=== PATIENT | male | born 1990 | race Two or more races ===

== ENCOUNTER 2018-09-26 09:57 | Day surgery (SDC) | payer SELFPAY ==
[2018-09-26] VITALS (12 sets, daily range): BP systolic 157–177; BP diastolic 90–105
[~2018-09-26] VITALS: Ht 172.7 cm; Wt 85.7 kg
--- NOTE | 2018-09-26 10:10 | NUR ---
ED Nurse Note: Pt brought in to ER by friend after having laceration on Lt lower arm laceration from triming tree with electric saw at work. the laceration is deep and tendon and muscles are visible. the laceration measured 2cm x 7cm and bleeding. pt aao x4 and ambulatory. graimacing due to severe pain but calm and cooperative.
[2018-09-26] MEDS ORDERED: Tetanus/Diptheria/Pertussis IM ONE (10:15)
--- NOTE | 2018-09-26 10:26 | NUR ---
ED Nurse Note: pt is on booky, pt will not be changed due to movement cause more bleeding from the site. irrigation done with 50 cc of NS. pt has sensation on Lt 5 fingers and able to move all of them. capillary refill < 3 seconds on both hands.
--- NOTE | 2018-09-26 10:30 | NUR ---
ED Nurse Note: SARAHD contacted plastic surgeon and the surgeon is on the way.
--- NOTE | 2018-09-26 11:20 | NUR ---
ED Nurse Note: Plastic surgeon at bedside for procedure. family at bedside and verbalized understanding.
[2018-09-26] MEDS ORDERED: Lidocaine 1% Plain 30 ml INJ ONE ×4 (11:25→16:01)
[2018-09-26 11:29] LABS: BASOPHILS % (AUTO) 0.8 % (0.0-2.0); EOSINOPHILS % (AUTO) 0.6 % (0.0-3.0); HEMATOCRIT 43.6 % (42.0-52.0); LYMPHOCYTES % (AUTO) 18.5 % (20.0-45.0); MEAN CORPUSCULAR VOLUME 86 FL (80-99); MONOCYTES % (AUTO) 8.5 % (1.0-10.0); NEUTROPHILS % (AUTO) 71.7 % (45.0-75.0); PLATELET COUNT 201 K/UL (150-450); RED BLOOD COUNT 5.08 M/UL (4.70-6.10); RED CELL DISTRIBUTION WIDTH 10.9 % (11.6-14.8); WHITE BLOOD COUNT 6.9 K/UL (4.8-10.8)
[2018-09-26] MEDS ORDERED: Morphine Sulfate 4mg/ml Inj (IV USE ONLY) IVP ONE (11:30)
[2018-09-26] MEDS ORDERED: Ketorolac 30mg Inj IV ONE (11:30)
[2018-09-26] MEDS ORDERED: ceFAZolin 1gm/50ml Premix 50 ML IV ONE (11:30)
[2018-09-26 11:38] LABS: ANION GAP 6 mmol/L (5-15); BLOOD UREA NITROGEN 12 mg/dL (7-18); CALCIUM 9.3 MG/DL (8.5-10.1); CARBON DIOXIDE 29 MMOL/L (21-32); CHLORIDE 100 MMOL/L (98-107); POTASSIUM 3.9 MMOL/L (3.5-5.1); SODIUM 135 MMOL/L (136-145)
[2018-09-26 11:39] LABS: INR 1.1 (0.9-1.1)
[2018-09-26 11:44] LABS: ALANINE AMINOTRANSFERASE 67 U/L (12-78); ALBUMIN 4.3 G/DL (3.4-5.0); ALBUMIN/GLOBULIN RATIO 1.2 (1.0-2.7); ALKALINE PHOSPHATASE 82 U/L (46-116); ASPARTATE AMINO TRANSFERASE 33 U/L (15-37); BILIRUBIN,TOTAL 0.7 MG/DL (0.2-1.0)
--- NOTE | 2018-09-26 11:47 | NUR ---
ED Nurse Note: plastic surgeon irrigated and applied dressing. he is talking to ERMD about having procedure in OR not in bedside.
--- NOTE | 2018-09-26 12:07 | NUR ---
ED Nurse Note: Plastic surgeon spoke pt, family, ERMD that he will transfer pt to OR. they verbalized understanding. procedure consent signed.
--- NOTE | 2018-09-26 12:43 | Emergency Room Report ---
History of Present Illness General Chief Complaint: Laceration Source: Patient Present Illness HPI 28-year-old male presents ED for evaluation. Patient walked in with laceration to forearm. States that he cut his wrist with a circular saw at work today. Denies any other injuries. Tetanus is unknown. Pain is an 8 out of 10, sharp, nonradiating. States he has sensation to his fingers. States he is able to move his fingers. No other aggravating relieving factors. Denies any other associated symptoms Allergies: Coded Allergies: No Known Allergies (Unverified , 09/26/18) Patient History Past Medical History: none Past Surgical History: none Pertinent Family History: none Social History: Denies: smoking, alcohol use, drug use Immunizations: UTD Reviewed Nursing Documentation: PMH: Agreed; PSxH: Agreed Nursing Documentation-PMH Past Medical History: No Stated History Review of Systems All Other Systems: negative except mentioned in HPI Physical Exam Vital Signs Date Time Temp Pulse Resp B/P (MAP) Pulse Ox O2 Delivery O2 Flow Rate FiO2 09/26/18 09:59 98.2 24 24 177/100 (125) 99 Room Air Sp02 EP Interpretation: reviewed, normal General Appearance: no apparent distress, alert, GCS 15, non-toxic Head: normocephalic Eyes: bilateral eye normal inspection, bilateral eye PERRL ENT: normal ENT inspection Neck: normal inspection Respiratory: normal inspection Cardiovascular #1: normal inspection Gastrointestinal: normal inspection Rectal: deferred Genitourinary: no CVA tenderness Musculoskeletal: other - 4cm gaping laceration to Left ventral wrist. tendons appear intact. no active bleeding. muscle exposed Neurologic: alert, oriented x3, responsive, motor strength/tone normal, sensory intact, speech normal Psychiatric: normal inspection Skin: normal color, warm/dry Lymphatic: normal inspection Medical Decision Making Diagnostic Impression: Primary Impression: Wrist laceration Qualified Codes: S61.512A - Laceration without foreign body of left wrist, initial encounter ER Course Hospital Course 28-year-old male presents ED with laceration to left wrist using circular saw Differentialtendon injury, nerve injury, arterial injury Clinical course Patient placed on stretcher. After initial history is exam reveals male in no acute distress. On exam there is a large gaping laceration to the left ventral wrist. There is muscle and tendon exposure. Tendons appeared to be intact but damaged. Sensations intact. Evaluated by Dr. Ortiz (plastics/hand). Agrees that this will require operative intervention in the OR. Labs drawn and unremarkable IV Ancef here. Patient nothing by mouth. Diagnosis - wrist laceration patient taken to OR in serious condition. Upon successfu repair patient will likely be discharged to homel Labs Test 09/26/18 11:20 White Blood Count 6.9 K/UL (4.8-10.8) Red Blood Count 5.08 M/UL (4.70-6.10) Hemoglobin 16.0 G/DL (14.2-18.0) Hematocrit 43.6 % (42.0-52.0) Mean Corpuscular Volume 86 FL (80-99) Mean Corpuscular Hemoglobin 31.5 PG (27.0-31.0) Mean Corpuscular Hemoglobin Concent 36.6 G/DL (32.0-36.0) Red Cell Distribution Width 10.9 % (11.6-14.8) Platelet Count 201 K/UL (150-450) Mean Platelet Volume 5.9 FL (6.5-10.1) Neutrophils (%) (Auto) 71.7 % (45.0-75.0) Lymphocytes (%) (Auto) 18.5 % (20.0-45.0) Monocytes (%) (Auto) 8.5 % (1.0-10.0) Eosinophils (%) (Auto) 0.6 % (0.0-3.0) Basophils (%) (Auto) 0.8 % (0.0-2.0) Prothrombin Time 11.3 SEC (9.30-11.50) Prothromb Time International Ratio 1.1 (0.9-1.1) Activated Partial Thromboplast Time 28 SEC (23-33) Sodium Level 135 MMOL/L (136-145) Potassium Level 3.9 MMOL/L (3.5-5.1) Chloride Level 100 MMOL/L (98-107) Carbon Dioxide Level 29 MMOL/L (21-32) Anion Gap 6 mmol/L (5-15) Blood Urea Nitrogen 12 mg/dL (7-18) Creatinine 1.0 MG/DL (0.55-1.30) Estimat Glomerular Filtration Rate > 60 mL/min (>60) Glucose Level 94 MG/DL (74-106) Calcium Level 9.3 MG/DL (8.5-10.1) Total Bilirubin 0.7 MG/DL (0.2-1.0) Aspartate Amino Transf (AST/SGOT) 33 U/L (15-37) Alanine Aminotransferase (ALT/SGPT) 67 U/L (12-78) Alkaline Phosphatase 82 U/L (46-116) Total Protein 8.0 G/DL (6.4-8.2) Albumin 4.3 G/DL (3.4-5.0) Globulin 3.7 g/dL Albumin/Globulin Ratio 1.2 (1.0-2.7) Last Vital Signs Date Time Temp Pulse Resp B/P (MAP) Pulse Ox O2 Delivery O2 Flow Rate FiO2 09/26/18 12:00 98.2 09/26/18 10:40 76 15 157/93 100 Room Air Status: improved Disposition: PLACE IN OBSERVATION Condition: Serious Scripts No Active Prescriptions or Reported Meds Referrals: NOT CHOSEN IPA/,REFERRING (PCP) Kirt Irving MD Sep 26, 2018 12:43
--- NOTE | 2018-09-26 13:06 | NUR ---
ED Nurse Note: pt pain in controlled. pt reported pain level on Lt lower arm laceration site 06/07. pt is in gown to be prepared for procedure in OR.
--- NOTE | 2018-09-26 13:47 | NUR ---
ED Nurse Note: Patient is transferred to OR with 1 OR tech in stable condition. pt is in gown, vss as documented, OR doctor and ERMD made aware.
[2018-09-26] MEDS ORDERED: Bacitracin Oint 15gm Tube TOPIC ONE (13:55)
[2018-09-26] MEDS ORDERED: Bacitracin 50000 Units Vial ONE ×2 (13:55→15:02)
[2018-09-26] MEDS ORDERED: Lidocaine 1% 10mg/ml/EPI 0.01mg/ml 50ml INJ ONE (13:55)
[2018-09-26] MEDS ORDERED: Sodium Chloride 10ml vial INJ ONE (14:10)
[2018-09-26] MEDS ORDERED: Lidocaine 1% MPF 10mg/ml 5ml ONE (14:10)
[2018-09-26] MEDS ORDERED: Propofol 200mg/20ml IV ONE ×2 (14:10→16:01)
[2018-09-26] MEDS ORDERED: Dexamethasone 4mg/ml vial ONE (14:10)
[2018-09-26] MEDS ORDERED: LR 1000ml 1,000 ML IVLG SCH (14:25)
--- NOTE | 2018-09-26 14:26 | Anethesia Preoperative Eval ---
Anesthesia Pre-op PMH/ROS General Date of Evaluation: Sep 26, 2018 Time of Evaluation: 14:21 Anesthesiologist: Jaylyn ASA Score: ASA 2 - Emergency Mallampati Score Class I : Soft palate, uvula, fauces, pillars visible Class II: Soft palate, uvula, fauces visible Class III: Soft palate, base of uvula visible Class IV: Only hard plate visible Mallampati Classification: Class II Surgeon: Angel Diagnosis: Laceration L Arm Surgical Procedure: Repair Left Arm Laceration Anesthesia History: none Family History: no anesthesia problems Allergies: Coded Allergies: No Known Allergies (Unverified , 09/26/18) Medications: see eMAR Patient NPO?: Yes Past Medical History Cardiovascular: Reports: HTN Anesthesia Pre-op Phys. Exam Physician Exam Last Vital Signs Date Time Temp Pulse Resp B/P (MAP) Pulse Ox O2 Delivery O2 Flow Rate FiO2 09/26/18 13:47 98.0 79 18 142/84 100 Room Air Constitutional: NAD Neurologic: CN 2-12 intact Cardiovascular: RRR Respiratory: CTA Gastrointestinal: S/NT/ND Airway Exam Mallampati Score: Class II MO: full ROM: full Teeth: intact Anesthesia Pre-op A/P Labs Hematology Test 09/26/18 11:20 White Blood Count 6.9 K/UL (4.8-10.8) Red Blood Count 5.08 M/UL (4.70-6.10) Hemoglobin 16.0 G/DL (14.2-18.0) Hematocrit 43.6 % (42.0-52.0) Mean Corpuscular Volume 86 FL (80-99) Mean Corpuscular Hemoglobin 31.5 PG (27.0-31.0) H Mean Corpuscular Hemoglobin Concent 36.6 G/DL (32.0-36.0) H Red Cell Distribution Width 10.9 % (11.6-14.8) L Platelet Count 201 K/UL (150-450) Mean Platelet Volume 5.9 FL (6.5-10.1) L Neutrophils (%) (Auto) 71.7 % (45.0-75.0) Lymphocytes (%) (Auto) 18.5 % (20.0-45.0) L Monocytes (%) (Auto) 8.5 % (1.0-10.0) Eosinophils (%) (Auto) 0.6 % (0.0-3.0) Basophils (%) (Auto) 0.8 % (0.0-2.0) Coagulation Test 09/26/18 11:20 Prothrombin Time 11.3 SEC (9.30-11.50) Prothromb Time International Ratio 1.1 (0.9-1.1) Activated Partial Thromboplast Time 28 SEC (23-33) Chemistry Test 09/26/18 11:20 Sodium Level 135 MMOL/L (136-145) L Potassium Level 3.9 MMOL/L (3.5-5.1) Chloride Level 100 MMOL/L (98-107) Carbon Dioxide Level 29 MMOL/L (21-32) Anion Gap 6 mmol/L (5-15) Blood Urea Nitrogen 12 mg/dL (7-18) Creatinine 1.0 MG/DL (0.55-1.30) Estimat Glomerular Filtration Rate > 60 mL/min (>60) Glucose Level 94 MG/DL (74-106) Calcium Level 9.3 MG/DL (8.5-10.1) Total Bilirubin 0.7 MG/DL (0.2-1.0) Aspartate Amino Transf (AST/SGOT) 33 U/L (15-37) Alanine Aminotransferase (ALT/SGPT) 67 U/L (12-78) Alkaline Phosphatase 82 U/L (46-116) Total Protein 8.0 G/DL (6.4-8.2) Albumin 4.3 G/DL (3.4-5.0) Globulin 3.7 g/dL Albumin/Globulin Ratio 1.2 (1.0-2.7) Risk Assessment & Plan Assessment: ASA 2E Plan: GA, SED Status Change Before Surgery: No Pre-Antibiotics Dru grams Ancef IV Given Within 1 Hr of Incision: Yes Time Given: 14:41 Barrett De La O MD Sep 26, 2018 14:26
[2018-09-26] MEDS ORDERED: oxyCODONE HCL/Acetaminophen 5/325mg ORAL PRN (14:30)
[2018-09-26] MEDS ORDERED: Ketorolac 30mg Inj IV PRN ×2 (14:30)
[2018-09-26] MEDS ORDERED: LORazepam Inj 2mg/ml 1ml IV PRN (14:30)
[2018-09-26] MEDS ORDERED: HYDROcodone/Acetamin 7.5/325 tab ORAL PRN (14:30)
[2018-09-26] MEDS ORDERED: LR 1000ml ONE (14:30)
[2018-09-26] MEDS ORDERED: DiphenhydrAMINE 50mg/ml Inj IVP PRN (14:30)
[2018-09-26] MEDS ORDERED: Labetalol 5mg/ml 20ml vial IV PRN (14:30)
[2018-09-26] MEDS ORDERED: Acetaminophen (Non formulary) 100 ML IV ONE (14:30)
[2018-09-26] MEDS ORDERED: Sterile Water Irrig 1000ml IRRIG ONE (14:30)
[2018-09-26] MEDS ORDERED: HYDROcodone/Acetamin 5/325 tab ORAL PRN (14:30)
[2018-09-26] MEDS ORDERED: fentaNYL 100 mcg/2 mL IV PRN (14:30)
[2018-09-26] MEDS ORDERED: Metoclopramide 10mg/2ml Inj IVP PRN (14:30)
[2018-09-26] MEDS ORDERED: Atropine Sulfate 0.4mg/ml inj IVP PRN (14:30)
[2018-09-26] MEDS ORDERED: Hydromorphone 0.5mg/0.5ml inj IVP PRN (14:30)
[2018-09-26] MEDS ORDERED: Meperidine 50mg/ml Inj(FOR RIGORS ONLY) IVP PRN (14:30)
[2018-09-26] MEDS ORDERED: Midazolam 2mg/2ml Inj IVP PRN (14:30)
--- NOTE | 2018-09-26 14:30 | Pre-Procedure Note/Attestation ---
Pre-Procedure Note/Attestation Complete Prior to Procedure Planned Procedure: left Procedure Narrative: Washout and exploration left wrist laceration with repair of any identified injuries to tendons, muscle, nerves, and arteries Indications for Procedure Pre-Operative Diagnosis: Left wrist laceration Attestation I attest that I discussed the nature of the procedure; its benefits; risks and complications; and alternatives (and the risks and benefits of such alternatives ), prior to the procedure, with the patient (or the patient's legal customer relations representative). I attest that, if there was a reasonable possibility of needing a blood transfusion, the patient (or the patient's legal customer relations representative) was given the [place] [employer] standardized written summary, pursuant to the [place] Blood Safety Act ([place] Health and Safety Code # 1645, as amended). I attest that I re-evaluated the patient just prior to the surgery and that there has been no change in the patient's H&P, except as documented below: Deangelo Ortiz MD Sep 26, 2018 14:30
--- NOTE | 2018-09-26 15:02 | Immediate Post-Op Evaluation ---
Immediate Post-Op Evalulation Immediate Post-Op Evalulation Procedure: Repair Left Arm Laceration Date of Evaluation: Sep 26, 2018 Time of Evaluation: 17:47 IV Fluids: 800 LR Blood Products: 0 Estimated Blood Loss: 25 Urinary Output: 0 Blood Pressure Systolic: 162 Blood Pressure Diastolic: 97 Pulse Rate: 81 Respiratory Rate: 16 O2 Sat by Pulse Oximetry: 100 Temperature (Fahrenheit): 97.8 Pain Score (1-10): 2 Nausea: No Vomiting: No Complications 0 Patient Status: awake, reacts, patent, none Hydration Status: adequate Dru Grams Ancef IV Given Within 1 Hr of Incision: Yes Time Given: 14:41 Barrett De La O MD Sep 26, 2018 15:02
--- NOTE | 2018-09-26 15:05 | 48 Hour Post Anesthesia Eval ---
Post Anesthesia Evaluation Procedure: Repair Left Arm Laceration Date of Evaluation: Sep 26, 2018 Time of Evaluation: 19:54 Blood Pressure Systolic: 143 0: 78 Pulse Rate: 67 Respiratory Rate: 18 Temperature (Fahrenheit): 98.2 O2 Sat by Pulse Oximetry: 100 Airway: patent Nausea: No Vomiting: No Pain Intensity: 2 Hydration Status: adequate Cardiopulmonary Status: Stable Mental Status/LOC: patient returned to baseline Follow-up Care/Observations: 0 Post-Anesthesia Complications: 0 Follow-up care needed: ready to discharge Barrett De La O MD Sep 26, 2018 15:05
[2018-09-26] MEDS ORDERED: NS Irrig 1000ml IRRIG ONE ×2 (15:18→15:19)
[2018-09-26] MEDS ORDERED: fentaNYL 100 mcg/2 mL IV ONE (16:12)
--- NOTE | 2018-09-26 18:04 | Brief Operative Note ---
Immediate Post Operative Note Operative Note Pre-op Diagnosis: Left wrist laceration Procedure: Washout and exploration left wrist laceration Repair of musculotendinous junction of Flexor digitorum superficialis muscle to index finger, ring finger, small finger Repair of left Flexor carpi ulnaris Post-op Diagnosis: Same Post-op Diagnosis: same as pre-op Findings: consistent w/pre-op dx studies Surgeon: Deangelo Ortiz MD Anesthesiologist: Dr. De La O Anesthesia: general Specimen: none Complications: none Condition: stable Fluids: 700cc Estimated Blood Loss: minimal Drains: none Implant(s) used?: No Deangelo Ortiz MD Sep 26, 2018 18:04
--- NOTE | 2018-09-29 00:30 | Consultation ---
DATE OF CONSULTATION: 09/26/2018 PLASTIC SURGERY CONSULTATION CONSULTING PHYSICIAN: Deangelo Ortiz M.D. CHIEF COMPLAINT: Left distal forearm laceration. HISTORY OF PRESENT ILLNESS: The patient is a 28-year-old male, who suffered a laceration to the left distal forearm while operating a circular saw earlier today while at work. The patient presented to the [facility] Emergency Room where he was seen and evaluated by the emergency room physician. The patient reported having intact sensation throughout the left hand and was able to move all digits on the left hand. The patient was found to have an isolated injury to the left upper extremity and Plastic Surgery was consulted for further management of the patient's injuries. PAST MEDICAL HISTORY: None. PAST SURGICAL HISTORY: None. PRIOR HAND TRAUMA: None. CURRENT MEDICATIONS: None. FAMILY HISTORY: Noncontributory. SOCIAL HISTORY: He reports occasional tobacco and alcohol use. REVIEW OF SYSTEMS: Significant for those things mentioned in the history of present illness. PHYSICAL EXAMINATION: VITAL SIGNS: Afebrile. Vital signs stable. GENERAL: No apparent distress. EXTREMITIES: Examination of the left upper extremity revealed an obliquely oriented 7 cm deep laceration across the volar surface of the distal forearm. There was no significant bleeding noted at this time. The left hand appeared to be well perfused with palpable radial and ulnar arteries at the level of the wrist. The patient has intact wrist flexion and extension. The patient has intact finger flexion and extension throughout. There was intact sensation noted between the distribution of both the median and ulnar nerves. Examination of the laceration site revealed disruption of the muscle belly and tendon of the flexor digitorum superficialis and flexor carpi ulnaris. ASSESSMENT: This is a 28-year-old male status post circular saw injury to left volar distal forearm with associated muscle and tendon injury. PLAN: I informed the patient and his family about the nature of the injuries and the recommendation for going to the operating room for wound exploration and repair of any identified injuries. They were informed that there appeared to be some involvement of muscle and tendon, which would be further evaluated in the operating room. I informed the patient and his family about the surgical procedure, which would include exploration of the forearm laceration site and repair of any identified injuries to nerves, tendons, and vessels. The patient was informed about the risks of surgery, which include, but not limited to bleeding, infection, wound problems, scarring, stiffness of the wrist and digits, possible failure of the tendon repair, and possibility for additional surgery in the future. The patient and his family understood the planned surgical procedure and the associated risks. Consent was obtained for exploration of left forearm laceration with repair of any identified injuries to nerves, tendons, or vessels. The plan is to take the patient to surgery at the next available operating room time. Deangelo Ortiz M.D. DR: Jaymie JOB#: [id number] CC: SYLVIA
--- NOTE | 2018-09-29 01:15 | Operative Note - Dictated ---
DATE OF OPERATION: 09/26/2018 SURGEON: Deangelo Ortiz MD. PREOPERATIVE DIAGNOSIS: Volar laceration of left distal forearm (7cm) POSTOPERATIVE DIAGNOSES: Volar laceration of left distal forearm with zone 5 flexor tendon injuries at the level of the musculotendinous junction including partial laceration of the flexor digitorum superficialis tendon of the index finger, ring finger, and small finger, and a near complete laceration of the flexor carpi ulnaris tendon. PROCEDURE PERFORMED: 1. Washout and exploration of left distal forearm laceration. 2. Repair of partial laceration of the flexor digitorum superficialis tendon of the index finger. 3. Repair of partial laceration of the flexor digitorum superficialis tendon of the ring finger. 4. Repair of partial laceration of flexor digitorum superficialis tendon of the small finger. 5. Repair of near complete laceration of the flexor carpi ulnaris tendon. ANESTHESIA: General anesthesia. ESTIMATED BLOOD LOSS: Less than 25 mL. SPECIMENS: None. DRAINS: None. FINDINGS: The patient had a 7-centimeter laceration on the volar surface of the left distal forearm. After exposure of the wound, the patient was noted to have zone 5 flexor tendon injuries at the level of the musculotendinous junction of the flexor digitorum superficialis tendon of the index finger, ring finger, and small finger, and flexor carpi ulnaris tendon. COMPLICATIONS: None. INDICATIONS: The patient is a 28-year-old male who suffered a deep laceration to his left distal forearm at work while operating a circular saw. On examination, the patient has intact sensation in the distribution of the median nerve and ulnar nerve. Within the wound, there was noted to be involvement of the musculotendinous junction of the flexor digitorum superficialis tendon and flexor carpi ulnaris tendon. The plan is to explore the wound and repair any identified injuries found to tendons, nerves, and vessels. The patient was informed about the surgical procedure. In addition, the patient was informed about the risks of surgery which include but are not limited to bleeding, infection, wound healing problems , scarring, possible failure of the tendon repair, and the possible need for additional surgery in the future. Consent was obtained for washout and exploration of left forearm wound with repair of any tendon, nerve, and vessel injuries identified. DESCRIPTION OF PROCEDURE: After obtaining consent, the patient was transferred to the operating room, placed on the operating table in supine position. The patient's left arm was abducted and placed onto an arm board. A well-padded tourniquet was applied to the left upper arm. The patient's left hand, wrist, and arm were prepped with Betadine scrub, followed by Betadine paint, and then dressed in sterile fashion. Initially, the left volar forearm laceration site was thoroughly irrigated with saline. After thoroughly irrigating the laceration site, the left volar forearm wound was explored. The arm was exsanguinated with an Esmarch bandage and the tourniquet was inflated to 250 mmHg. In order to obtain better exposure of the underlying injuries, the laceration site was extended proximally on the radial aspect of the forearm and distally on the ulnar aspect. Skin flaps were elevated and the wound edges were tacked back with a 3-0 nylon suture to allow better visualization of the wound. Upon exploring the wound, there was noted to be near-complete transection of the flexor carpi ulnaris tendon at the level of the musculotendinous junction. There was noted to be a partial laceration of the flexor digitorum superficialis tendon of the index finger, ring finger, and small finger at the level of the musculotendinous junction. There was noted to be significant injury to the muscle bellies of the flexor digitorum superficialis muscle and flexor carpi ulnaris muscle. After identifying all the injuries within the left forearm laceration site, efforts turned towards repairing the flexor tendons. Initially, the partially lacerated index finger, ring finger, and small finger flexor digitorum superficialis tendons were repaired. The cut ends of the flexor digitorum superficialis tendons were identified and modified Monter[place]so core sutures with 2-0 TiCron were placed. The muscle belly of the flexor digitorum superficialis muscle was reapproximated with 3-0 Vicryl sutures. Next, the near-completely lacerated flexor carpi ulnaris tendon was repaired. The cut ends of the flexor carpi ulnaris tendon were identified and a modified [place] core suture with 2-0 TiCron was placed. A 5-0 Prolene running epitendinous suture was then placed to reinforce the tendon repair. The muscle belly of the flexor carpi ulnaris muscle was reapproximated with 3-0 Vicryl suture. Next, efforts turned towards wound closure. The surgical site was once again thoroughly irrigated and hemostasis was obtained with the use of the bipolar electrocautery. The volar forearm laceration site was closed with 3-0 nylon simple interrupted sutures. The patient's hand, wrist, and arm were cleaned with saline and dried. Bacitracin ointment was applied over the volar forearm laceration repair site followed by Adaptic dressing, and covered with sterile 4x4s and Kerlix wrap. Next, a sterile 3 inch Webril was placed along the length of the forearm, wrist and hand, down to the tips of the fingers. A 4 inch prefabricated one-step splint was used to make a protective dorsal short-arm splint, which extended to the fingertips holding the wrist and digits in a flexed position. This was wrapped with an Albert wrap completing the splint. The patient tolerated the procedure well. There were no issues or complications. Lap count, instrument count, needle count were all reported as correct at the completion of surgery. The patient was extubated without difficulty and transferred to recovery room in stable condition. Deangelo Ortiz M.D. DR: NICHELLE JOB#: [id number] CC: SYLVIA
== END 2018-09-26 18:53 | disposition home or self-care (01) ==
LOC: EMR 10:30 → SDS 14:01
DX: S51.812A Laceration without foreign body of left forearm, initial encounter (principal); Z23 Encounter for immunization; S56.122A Laceration of flexor muscle, fascia and tendon of left index finger at forearm level, initial encounter; S56.126A Laceration of flexor muscle, fascia and tendon of left ring finger at forearm level, initial encounter; S56.128A Laceration of flexor muscle, fascia and tendon of left little finger at forearm level, initial encounter; S56.222A Laceration of other flexor muscle, fascia and tendon at forearm level, left arm, initial encounter; W29.8XXA Contact with other powered hand tools and household machinery, initial encounter; Y93.9 Activity, unspecified; Y92.9 Unspecified place or not applicable; Y99.0 Civilian activity done for income or pay; I10 Essential (primary) hypertension
CPT/HCPCS: 25260; 36415; 80053; 85025; 85610; 85730; 86850; 86900; 86901; 90471; 90715; 96365; 96375; 99285; J0690; J1100; J1885; J2001; J2250; J2270; J2405; J2704; J3010; 94003; 94150